=== PATIENT | female | born 1970 | race African-American/Black ===

== ENCOUNTER → 2017-12-17 | Outpatient (CLI) | payer OTHER ==
[~2017-12-17] MED LIST: ACET650T67 PO; ASPI81CH6 CHEW; BIOTCAP PO; BUPR150CR PO; COMMODE 3-IN-11 MIS; CYCL10TA PO; CYCL1PAK PO; ESSE250T PO; FISH1000 PO; HYDR-3288 PO; LORA1TAB PO; LORA1TAB12 PO; MAGN250T13 PO; OMEGCAP PO; PROT40TA PO; TRAM50 PO; ULTR50TA PO; VIIB10TA PO; VIIB20TA PO; VITA-13 PO; VITA1000 PO; VORT10TA PO; WALKER WHEELS/F1 MIS; WELL150T PO; ZOFR4TAB PO; ZOFR4TAB3 PO
== END ==
LOC: CPRE 09:32
PROVIDERS: ATTEND Orthopaedic Surgery Sports Medicine
DX: M16.11 Unilateral primary osteoarthritis, right hip (principal)

== ENCOUNTER 2017-12-31 05:13 | Inpatient (IN) | payer OTHER ==
[~2017-12-31] VITALS: Ht 160 cm; Wt 95.4 kg
[~2017-12-31 05:13] MED LIST changes: -ASPI81CH6 CHEW; -COMMODE 3-IN-11 MIS; -CYCL1PAK PO; -FISH1000 PO; -HYDR-3288 PO; -LORA1TAB PO; -MAGN250T13 PO; -ULTR50TA PO; -VITA-13 PO; -VORT10TA PO; -WALKER WHEELS/F1 MIS; -WELL150T PO; -ZOFR4TAB3 PO
[2017-12-31] MEDS ORDERED: CHLORHEXIDINE GLUCONATE 2 % 1 PACK (2 CLOTHS) TOPICAL PRN ×2 (05:45→06:00)
[2017-12-31] MEDS ORDERED: DEXAMETHASONE SOD PHOS 20 MG/5 ML VIAL IV PUSH ONE (05:45)
[2017-12-31] MEDS ORDERED: SODIUM CHLORID 0.9% 500 ML IV PRN ×2 (05:45→06:00)
[2017-12-31] MEDS ORDERED: POVIDONE IODINE 5% (ANTISEPSIS KIT) 4 APPLICATIONS EACH NARE PRN ×2 (05:45→06:00)
[2017-12-31] MEDS ORDERED: METOPROLOL TARTRATE 25 MG TAB PO PRN ×2 (05:45→06:00)
[2017-12-31] MEDS ORDERED: LACTATED RINGER'S 1000 ML IV PRN ×2 (05:45→06:00)
[2017-12-31] MEDS ORDERED: SODIUM CHLORIDE 0.9% IV SCH (06:00)
[2017-12-31] MEDS ORDERED: CHLORHEXIDINE GLUCONATE 4% SOLN 120 ML BTL TOPICAL SCH (06:00)
[2017-12-31] MEDS ORDERED: TRANEXAMIC ACID IV SCH (06:00)
[2017-12-31] MEDS ORDERED: TRANEXAMIC PERI-ARTICULAR 3,000 MG/NS 100 ML P-ARTICULR SCH ×2 (06:00)
[2017-12-31] MEDS ORDERED: EXPAREL PERI-ARTICULAR INJECTION (TOTAL VOL. 60 ML) P-ARTICULR SCH ×2 (06:00)
[2017-12-31] MEDS ORDERED: POVIDONE IODINE 7.5% SCRUB 118 ML BOTTLE TOPICAL SCH (06:00)
[2017-12-31] MEDS ORDERED: VANCOMYCIN 1 GM/200 ML PREMIX ON-CALL IV SCH (06:00)
[2017-12-31] MEDS ORDERED: ceFAZolin 2 GM PREMIX 50 ML IV SCH (06:00)
[2017-12-31] MEDS ORDERED: GENTAMICIN SULFATE 80 MG/2 ML VIAL ONE (06:29)
[2017-12-31] MEDS ORDERED: HYDR-3288 PO ×2 (06:50→10:21)
[2017-12-31] MEDS ORDERED: ASPI81CH6 CHEW (06:51)
[2017-12-31] MEDS ORDERED: ZOLPIDEM TARTRATE 5 MG TAB PO PRN (07:00)
[2017-12-31] MEDS ORDERED: diphenhydrAMINE HCL 50 MG/ML VIAL IV PUSH PRN (07:00)
[2017-12-31] MEDS ORDERED: ONDANSETRON HCL 4 MG/2 ML VIAL IVP PRN (07:00)
[2017-12-31] MEDS ORDERED: ACETAMINOPHEN 1000 MG/100 ML 100 ML IV ONE (07:51)
[2017-12-31] MEDS ORDERED: DO NOT ADM ANY ANTICOAGULANT DRUGS PRN (08:42)
--- NOTE | 2017-12-31 09:00 | MP ---
cc: Mika Ferreira MD DATE OF OPERATION: 12/31/2017 PREOPERATIVE DIAGNOSIS: Right hip osteoarthritis. POSTOPERATIVE DIAGNOSIS: Right hip osteoarthritis. PROCEDURE PERFORMED: Right total hip arthroplasty. SURGEON: Mika Ferreira MD. ANESTHESIA: General. ESTIMATED BLOOD LOSS: 200 mL. COMPLICATIONS: None. IMPLANTS USED: DePuy Corail size 10 press-fit standard offset femoral stem, size 48 solid Madison Gription cup, size 32 mm +4 high offset posterior high wall highly cross-linked polyethylene liner, size 32 ceramic head, +1 neck. JUSTIFICATION: This patient is a 47-year-old female with a history of severe end-stage osteoarthritis involving the right hip. She has severe disabling pain with standing, walking ambulation and weight-bearing activities. She has severe pain at rest. The pain does interfere with activities of daily living. She has failed greater than 3 months of nonoperative conservative treatment to include medications, therapy, injections, ambulatory assisted, home exercise program, activity modification. The patient had a gastric bypass surgery and has lost 100 pounds. X-rays of the right hip reveal severe end-stage osteoarthritis with [id number] joint space narrowing, subchondral sclerosis, subchondral cyst osteophyte formation with superior subluxation. The patient was counseled as to the risks, benefits and alternatives to a total hip arthroplasty. The risks were discussed, which include, but are not limited to anesthesia, bleeding, infection, damage to nerves and blood vessels, pain, stiffness, fracture, dislocation, leg length discrepancy, blood clots, pulmonary embolism, even . The patient's pain is very severe. She favored the benefits over the risks. She did wish to proceed with surgery. PROCEDURE IN DETAIL: Written consent was obtained. The patient was identified by name, taken to the operating room, and placed supine on the operating room table. General anesthesia was administered, as well as 2 grams of IV Ancef and 1 gram of IV vancomycin. The patient was carefully turned to the left lateral decubitus position. A lateral arm roll was placed. All bony prominences and pressure points were well padded. The right hip and right lower extremity prepped and draped using Isopropyl alcohol, Hibiclens solution and ChloraPrep solution. After a time-out was performed, a longitudinal incision was made over the posterolateral aspect of the right hip. The fascial layer was incised. The piriformis and capsule was incised and tagged with #2 FiberWire suture. The hip was dislocated posteriorly. An oscillating saw was used to perform a femoral neck cut. Attention turned to the acetabulum where a 10 blade scalpel was used to excise the labrum. Sequential reaming began at size 41 and was carried through to a size 48. Subsequently, a solid [place] Gription cup was implanted in approximately 45 degrees of abduction and 10 degrees of anteversion. There was good purchase and fixation after insertion of the cup. A screw hole eliminator was placed, followed by the highly cross-linked, +4 polyethylene liner. The liner was impacted in place and tested for stability. Attention was turned to the femur where a box cutting osteotome was used to gain entrance into the intramedullary canal of the femur. This was followed by canal finder and lateralizing reamer. Sequential broaching up to a size 10 was followed by a calcar planer. Trial head and neck combinations were evaluated and final components implanted in place with the correct components. The leg could achieved full extension and external rotation without evidence of anterior instability or impingement. The hip could be flexed 90 degrees and internally rotated 70 degrees before evidence of posterior instability. Soft tissue tension felt appropriate and clinically leg lengths were felt relatively symmetric. The surgical wound was thoroughly irrigated with sterile saline post lavage post-antibiotic impregnated solution. The piriformis and capsule was repaired primarily with #2 FiberWire suture. Fascial layer was closed with #1 Vicryl suture. Subcutaneous layer closed with 2-0 Vicryl suture. Skin was closed with Dermabond. Sterile dressings were applied. The patient tolerated the procedure well with no intraoperative complications noted. Mika Ferreira MD JWViry/RONNI , 08:36 AM , 08:59 AM
[2017-12-31] MEDS ORDERED: Post-op Orders (for Pharmacy) XX ONE (09:07)
[2017-12-31] MEDS ORDERED: MIDAZOLAM HCL 2 MG/2 ML VIAL ONE (09:15)
[2017-12-31] MEDS ORDERED: *morphine SULFATE 4 MG/ML PERIprocedure ONLY ONE ×2 (09:15→09:27)
[2017-12-31] MEDS ORDERED: MEPERIDINE HCL 25 MG/ML VIAL ONE (09:32)
[2017-12-31] MEDS ORDERED: LORazepam 2 MG/ML VIAL ONE (09:39)
[2017-12-31] MEDS: SODIUM CHLOR 0.9% 1000 ML INJ 1,000 ML IV SCH ×2 (11:00→21:50)
--- NOTE | 2017-12-31 11:03 | RADRPT ---
EXAM DATE/TIME: 12/31/2017 09:25 [facility] COMPARISON: No previous studies available for comparison. INDICATIONS : Post op right hip surgery. MEDICAL HISTORY : None. SURGICAL HISTORY : None. ENCOUNTER: Initial ACUITY: 1 day PAIN SCORE: Non-responsive. LOCATION: Right hip and pelvis FINDINGS: The patient is status post a total hip arthroplasty with a bipolar prosthesis. Prosthesis is well-sea ember. Alignment is anatomic. A fracture is not appreciated. CONCLUSION: Anatomic alignment. Brain Moreno MD FACR Board Certified Radiologist. This report was verified electronically.
[2017-12-31] MEDS: ACETAMINOPHEN/HYDROcodone 325 MG/10 MG TAB PO PRN ×3 (11:08→17:52)
[2017-12-31 11:30] VITALS: BP 133/66; PULSE 90; RESP 18; TEMP 97.9; O2SAT 100
--- NOTE | 2017-12-31 11:48 | PD.CONS ---
HPI Service [facility] Hospitalists Consult Requested By Dr. Ferreira Reason for Consult Postoperative medical management Primary Care Physician Lizbeth Ledesma MD Diagnoses: (1) Primary localized osteoarthrosis, pelvic region and thigh History of Present Illness This is a pleasant 47-year-old female patient with past medical history which includes iron deficiency anemia, chronic low back pain, anxiety depression managed by Dr. San and osteoarthritis of the right hip. Patient is seen postoperative right total hip arthroplasty today 12/31/[address] Ferreira. Patient is drowsy postanesthesia at this time information gathered from patient as well as prior computerized charting. Patient is currently complaining of postoperative pain has received oral pain medication 15 minutes ago. Patient denies nausea vomiting diarrhea constipation fevers chills shortness of breath or chest pain. Review of Systems Respiratory: DENIES: Cough, Sputum production, Shortness of breath Cardiovascular: DENIES: Chest pain, Palpitations, Dyspnea on Exertion Gastrointestinal: DENIES: Abdominal pain, Nausea, Vomiting Musculoskeletal: COMPLAINS OF: Joint pain, Joint Swelling Neurologic: DENIES: Headache, Speech Problems Psychiatric: DENIES: Anxiety, Depression Past Family Social History Past Medical History iron deficiency anemia, chronic low back pain, anxiety depression managed by Dr. San and osteoarthritis of the right hip Past Surgical History section, cholecystectomy, EGD/colonoscopy, sleeve gastrectomy, tubal ligation, endometrial ablation Reported Medications Easley (Hydrocodone-Acetaminophen) 7.5-325 mg Tab 1-2 Tab PO Q6H PRN Aspirin Low Dose (Aspirin) 81 Mg Chew 81 Mg CHEW BID 30 Days Easley (Hydrocodone-Acetaminophen) 7.5-325 mg Tab 1-2 Tab PO Q6H PRN Tylenol Arthritis (Acetaminophen) 650 Mg Tablet.er 1 Tab PO DAILY PRN Ultram (Tramadol HCl) 50 Mg Tab 50 Mg PO Q4H PRN Protonix (Pantoprazole Sodium) 40 Mg Tab 40 Mg PO DAILY Zofran (Ondansetron HCl) 4 Mg Tab 4 Mg PO Q6HR PRN [place]-3 Fish Oil/Vitamin (Fish Oil-Cholecalciferol) 1,000-1,000 Mg Cap 1 Cap PO DAILY Magnesium 250 Mg Tab 1 Tab PO DAILY Lorazepam 1 Mg Tab 1 Mg PO BID PRN Flexeril (Cyclobenzaprine HCl) 10 Mg Tab 10 Mg PO TID Vitamin D-1000 (Cholecalciferol) 1,000 Unit Tab 1,000 Units PO DAILY Wellbutrin SR 12 HR (Bupropion HCl) 150 Mg Tab 150 Mg PO Q12HR Biotin 5 Mg Cap 5 Mg PO DAILY Viibryd (Vilazodone) 20 Mg Tab 30 Mg PO HS Patient takes 10 mg in the AM and 20 mg HS Allergies: Coded Allergies: No Known Allergies (Verified Allergy, Unknown, 12/31/17) Family History Family medical history includes diabetes hypertension and myasthenia gravis Social History Occasional EtOH use 3-4 times per year Lifelong non-smoker Denies drug use Physical Exam Vital Signs Vital Signs Date Time Temp Pulse Resp B/P (MAP) Pulse Ox O2 Delivery O2 Flow Rate FiO2 12/31/17 10:45 97.6 78 15 133/73 (93) 100 Nasal Cannula 3 12/31/17 10:15 85 15 128/69 (88) 100 Nasal Cannula 3 12/31/17 10:00 78 20 133/73 (93) 100 Nasal Cannula 3 12/31/17 09:45 102 28 142/78 (99) 100 Nasal Cannula 3 12/31/17 09:30 109 24 134/73 (93) 100 Nasal Cannula 3 12/31/17 09:15 96 24 119/68 (85) 100 Nasal Cannula 3 12/31/17 09:08 97.8 96 22 125/71 (89) 100 Nasal Cannula 3 12/31/17 06:06 99.0 86 16 137/78 (97) 98 Physical Exam GENERAL: This is a well-nourished, well-developed patient, in no apparent distress. SKIN: Postoperative dressing dry and intact HEAD: Atraumatic. Normocephalic. No temporal or scalp tenderness. EYES: Extraocular motions intact. No scleral icterus. No injection or drainage. CARDIOVASCULAR: Regular rate and rhythm RESPIRATORY: Clear to auscultation. Breath sounds equal bilaterally. GASTROINTESTINAL: Abdomen soft, non-tender, nondistended. Hypoactive bowel sounds throughout MUSCULOSKELETAL: Extremities without clubbing, cyanosis, or edema. No joint tenderness, effusion, or edema noted. No calf tenderness. Negative Homans sign bilaterally. NEUROLOGICAL: Awake and alert. Motor and sensory grossly within normal limits. Five out of 5 muscle strength in all muscle groups, with the exception of postoperative extremity. Normal speech. Imaging Last Impressions Hip and Pelvis X-Ray 12/31/17 0000 Signed Impressions: Service Date/Time: Sunday, December 31, 2017 09:25 - CONCLUSION: Anatomic alignment. Brain Moreno MD Assessment and Plan Problem List: (1) Primary localized osteoarthrosis, pelvic region and thigh ICD Codes: M16.10 - Unilateral primary osteoarthritis, unspecified hip Plan: Patient status post right total hip arthroplasty posterior approach with Dr. Ferreira on 12/31/[address] Ferreira Patient on p.o. and IV pain medication Patient on Lovenox for DVT prophylaxis Physical therapy Supportive care (2) Anxiety and depression ICD Codes: F41.9 - Anxiety disorder, unspecified; F32.9 - Major depressive disorder, single episode, unspecified Plan: Patient follows with Dr. Hyatt outpatient Patient takes Viibryd 10 mg in the AM and 20 mg PO HS, Continue patient's home regimen and she reports she is fairly stable on this regimen Assessment and Plan Patient examined. Assessment and plan formulated with Dafne Toussaint PA-C. I agree with the above. Dafne Toussaint Dec 31, 2017 11:48 Ephraim Conde MD Dec 31, 2017 12:39
[2017-12-31] MEDS ORDERED: GLYCOPYRROLATE 1 MG/5 ML SYRINGE IV PUSH ONE (12:00)
[2017-12-31] MEDS ORDERED: PROPOFOL 200 MG/20 ML AMP IV ONE (12:00)
[2017-12-31] MEDS ORDERED: ROCURONIUM INJ 50 MG/5 ML SYRINGE IV PUSH ONE (12:00)
[2017-12-31] MEDS ORDERED: LACTATED RINGER'S 1000 ML INJ 1,000 ML IV ONE (12:00)
[2017-12-31] MEDS ORDERED: LIDOCAINE HCL 1% PF 5 ML SYRINGE OTHER ONE (12:00)
[2017-12-31] MEDS ORDERED: ONDANSETRON HCL 4 MG/2 ML VIAL IV ONE (12:00)
[2017-12-31] MEDS ORDERED: NEOSTIGMINE 5 MG/5 ML SYRINGE IV PUSH ONE (12:00)
[2017-12-31] MEDS: ceFAZolin 2 GM PREMIX 50 ML IV SCH ×2 (12:51→17:52)
[2017-12-31] MEDS: MORPHINE SULFATE 4 MG/ML INJ IV PUSH PRN ×2 (12:52→21:39)
[2017-12-31] MEDS ORDERED: BENZOCAINE 6 MG/MENTHOL 10 MG LOZENGE BUCCAL ONE (13:30)
[2017-12-31] MEDS: BENZOCAINE 6 MG/MENTHOL 10 MG LOZENGE BUCCAL PRN (15:48)
[2017-12-31 16:00] VITALS: BP 141/70; PULSE 91; RESP 18; TEMP 97.8; O2SAT 100
[2017-12-31 17:11] VITALS: O2SAT 97
[2017-12-31 20:16] VITALS: BP 140/73; PULSE 106; RESP 17; TEMP 98.5; O2SAT 100
[2017-12-31] MEDS ORDERED: VILAZODONE 20 MG PO SCH (21:00)
[2017-12-31] MEDS: buPROPion HCL 150 MG SUSTAINED RELEASE TAB PO SCH (21:39)
[2017-12-31] MEDS: LORazepam 1 MG TAB PO PRN (21:39)
[2018-01-01] VITALS (8 sets, daily range): BP systolic 111–131; BP diastolic 57–69; PULSE 102–111; RESP 16–18; TEMP 98.4–100.7; O2SAT 97–100
[2018-01-01] MEDS: ACETAMINOPHEN/HYDROcodone 325 MG/10 MG TAB PO PRN ×4 (00:52→20:24)
[2018-01-01] MEDS: ceFAZolin 2 GM PREMIX 50 ML IV SCH (00:52)
[2018-01-01] MEDS: BENZOCAINE 6 MG/MENTHOL 10 MG LOZENGE BUCCAL PRN (01:01)
[2018-01-01] MEDS: SODIUM CHLOR 0.9% 1000 ML INJ 1,000 ML IV SCH ×3 (04:28→20:31)
[2018-01-01] MEDS: MORPHINE SULFATE 4 MG/ML INJ IV PUSH PRN ×3 (04:38→17:19)
[2018-01-01 06:14] LABS: HEMATOCRIT 28.7 % (35.0-46.0); HEMOGLOBIN 9.7 GM/DL (11.6-15.3); MEAN CORPUSCULAR HEMOGLOBIN 33.1 PG (27.0-34.0); MEAN CORPUSCULAR HGB CONC 33.7 % (32.0-36.0); MEAN PLATELET VOLUME 7.8 FL (7.0-11.0); PLATELET COUNT 322 TH/MM3 (150-450); RED BLOOD COUNT 2.92 MIL/MM3 (4.00-5.30); RED CELL DISTRIBUTION WIDTH 12.7 % (11.6-17.2); WHITE BLOOD COUNT 11.5 TH/MM3 (4.0-11.0)
[2018-01-01 06:41] LABS: BICARBONATE 23.5 MEQ/L (21.0-32.0); CALCIUM 8.4 MG/DL (8.5-10.1); CREATININE 0.9 MG/DL (0.50-1.00)
[2018-01-01] MEDS: buPROPion HCL 150 MG SUSTAINED RELEASE TAB PO SCH ×2 (07:57→20:24)
[2018-01-01] MEDS: PANTOPRAZOLE SOD 40 MG DELAYED RELEASE TAB PO SCH (07:57)
[2018-01-01] MEDS: LORazepam 1 MG TAB PO PRN ×2 (07:57→20:23)
[2018-01-01] MEDS: ENOXAPARIN SODIUM 40 MG/0.4 ML SYRINGE SQ SCH (07:58)
--- NOTE | 2018-01-01 08:02 | PD.ORT.PN ---
Subjective Post Op Day #: 1 Subjective Remarks very painful Objective Vitals Vital Signs Date Time Temp Pulse Resp B/P (MAP) Pulse Ox O2 Delivery O2 Flow Rate FiO2 01/01/18 04:46 99.1 103 16 111/58 (75) 97 01/01/18 00:30 98.9 102 18 123/57 (79) 98 12/31/17 20:16 98.5 106 17 140/73 (95) 100 12/31/17 17:11 97 21 12/31/17 16:00 97.8 91 18 141/70 (93) 100 12/31/17 12:57 18 12/31/17 12:08 18 12/31/17 12:08 18 12/31/17 11:30 97.9 90 18 133/66 (88) 100 12/31/17 10:45 97.6 78 15 133/73 (93) 100 Nasal Cannula 3 12/31/17 10:15 85 15 128/69 (88) 100 Nasal Cannula 3 12/31/17 10:00 78 20 133/73 (93) 100 Nasal Cannula 3 12/31/17 09:45 102 28 142/78 (99) 100 Nasal Cannula 3 12/31/17 09:30 109 24 134/73 (93) 100 Nasal Cannula 3 12/31/17 09:15 96 24 119/68 (85) 100 Nasal Cannula 3 12/31/17 09:08 97.8 96 22 125/71 (89) 100 Nasal Cannula 3 I/O 12/31/17 12/31/17 12/31/17 01/01/18 01/01/18 01/01/18 07:00 15:00 23:00 07:00 15:00 23:00 Intake Total 1500 ml 720 ml 50 ml 360 ml Output Total 200 ml Balance 1300 ml 720 ml 50 ml 360 ml Intake Oral 720 ml 360 ml IV Total 50 ml Other 1500 ml Output Estimated Blood Loss 200 ml # Voids 3 2 # Bowel Movements 0 Result Diagram: 01/01/18 0504 01/01/18 0504 Objective Remarks in bed, nad dressing c/d/i thigh soft neg homans nvi Assessment & Plan Ortho Post Op Day #: 1 Problem List: Assessment and Plan s/p R CISCO posterior approach wbat ok to maintain dressing unless saturated lovenox, d/c on asa81 d/c planning home with [facility] and pt - likely Wed pain control f/up dr. trevizo 2 weeks Mika James Jan 01, 2018 08:02
--- NOTE | 2018-01-01 08:04 | HHI.DCPOC ---
Discharge Care Plan Diagnosis: (1) Primary localized osteoarthrosis, pelvic region and thigh Your Health Problems Are: Difficulty with ADL Goals to Promote Your Health * To prevent worsening of your condition and complications * To maintain your health at the optimal level Directions to Meet Your Goals Take your medications as prescribed Follow your dietary instruction Follow activity as directed Keep your appointments as scheduled Take your immunizations and boosters as scheduled If your symptoms worsen call your PCP, if no PCP go to Urgent Care Center or Emergency Room Smoking is Dangerous to Your Health. Avoid second hand smoke Call the 24-hour hour crisis hotline for domestic abuse at Mika James Jan 01, 2018 08:04
--- NOTE | 2018-01-01 08:05 | HHI.FF ---
Face to Face Verification Diagnosis: (1) Primary localized osteoarthrosis, pelvic region and thigh Physical Therapy Gait training, Safety evaluation, Transfer training, bed to chair Hip: Total hip, Protocol: Right Right LE Weight Bearing: WB as tolerated Nursing RN: 3 days/week x 2 weeks Nursing: Dressing changes Dressing Changes: Daily dressing change I have seen patient Dafne Mejia on 01/01/18. My clinical findings support the need for the requested home health care services because: Limited ability to care for self High risk of falls I certify that my clinical findings support that this patient is homebound because: Post-op weakness Unsteady gait/balance Mika James Jan 01, 2018 08:05
[2018-01-01] MEDS ORDERED: WALKER WHEELS/F1 MIS (08:06)
[2018-01-01] MEDS ORDERED: COMMODE 3-IN-11 MIS (08:06)
[2018-01-01] MEDS ORDERED: VIIBRYD 10 MG PO SCH (09:00)
[2018-01-01] MEDS: MULTIVITAMINS/MINERALS THERAPEUTIC TAB PO SCH (20:23)
[2018-01-01] MEDS: DOCUSATE SODIUM 100 MG CAP PO SCH (20:23)
[2018-01-02 00:29] VITALS: BP 102/54; PULSE 107; RESP 18; TEMP 98.8; O2SAT 94
[2018-01-02 03:05] VITALS: BP 124/61; PULSE 104; RESP 18; TEMP 97.7; O2SAT 96
[2018-01-02] MEDS: ACETAMINOPHEN/HYDROcodone 325 MG/10 MG TAB PO PRN ×4 (03:19→12:13)
[2018-01-02] MEDS ORDERED: BISACODYL 10 MG SUPP RECTAL PRN (06:30)
[2018-01-02] MEDS ORDERED: SENNOSIDES 8.6 MG TAB PO PRN (06:30)
[2018-01-02] MEDS ORDERED: LACTULOSE SYRUP 20 GM/30 ML CUP PO PRN (06:30)
[2018-01-02 07:36] VITALS: BP 113/58; PULSE 105; RESP 18; TEMP 98.4; O2SAT 99
[2018-01-02] MEDS: MULTIVITAMINS/MINERALS THERAPEUTIC TAB PO SCH (08:02)
[2018-01-02] MEDS: buPROPion HCL 150 MG SUSTAINED RELEASE TAB PO SCH (08:02)
[2018-01-02] MEDS: PANTOPRAZOLE SOD 40 MG DELAYED RELEASE TAB PO SCH (08:02)
[2018-01-02] MEDS: ENOXAPARIN SODIUM 40 MG/0.4 ML SYRINGE SQ SCH (08:03)
[2018-01-02] MEDS: DOCUSATE SODIUM 100 MG CAP PO SCH (08:03)
--- NOTE | 2018-01-02 08:09 | PD.ORT.PN ---
Subjective Post Op Day #: 2 Subjective Remarks still painful. thinks she may need to go to snf. Objective Vitals Vital Signs Date Time Temp Pulse Resp B/P (MAP) Pulse Ox O2 Delivery O2 Flow Rate FiO2 01/02/18 07:36 98.4 105 18 113/58 (76) 99 01/02/18 03:05 97.7 104 18 124/61 (82) 96 01/02/18 00:29 98.8 107 18 102/54 (70) 94 01/01/18 20:00 100.7 111 18 118/65 (82) 100 01/01/18 18:02 98 21 01/01/18 17:24 18 01/01/18 16:00 99.9 106 18 131/69 (89) 98 01/01/18 15:15 18 01/01/18 12:00 98.6 102 17 119/60 (79) 99 01/01/18 11:44 100 I/O 01/01/18 01/01/18 01/01/18 01/02/18 01/02/18 01/02/18 07:00 15:00 23:00 07:00 15:00 23:00 Intake Total 50 ml 360 ml 480 ml 360 ml Balance 50 ml 360 ml 480 ml 360 ml Intake Oral 360 ml 480 ml 360 ml IV Total 50 ml # Voids 2 3 2 # Bowel Movements 0 0 0 Result Diagram: 01/01/18 0504 01/01/18 0504 Objective Remarks in bed, nad dressing c/d/i thigh soft tenderness in the calf RLE nvi Assessment & Plan Ortho Post Op Day #: 2 Problem List: Assessment and Plan s/p R CISCO posterior approach wbat ok to maintain dressing unless saturated lovenox, d/c on asa81 d/c planning to snf - awaiting auth from insurance [facility] RLE pain control f/up dr. trevizo 2 weeks Mika James Jan 02, 2018 08:09
[2018-01-02] MEDS ORDERED: LORazepam 1 MG TAB PO PRN (08:15)
[2018-01-02 08:46] LABS: HEMATOCRIT 28.5 % (35.0-46.0); HEMOGLOBIN 9.5 GM/DL (11.6-15.3); MEAN CELL VOLUME 98.5 FL (80.0-100.0); MEAN CORPUSCULAR HGB CONC 33.4 % (32.0-36.0); MEAN PLATELET VOLUME 7.8 FL (7.0-11.0); PLATELET COUNT 304 TH/MM3 (150-450); RED BLOOD COUNT 2.89 MIL/MM3 (4.00-5.30); RED CELL DISTRIBUTION WIDTH 12.9 % (11.6-17.2); WHITE BLOOD COUNT 12.3 TH/MM3 (4.0-11.0)
[2018-01-02] MEDS ORDERED: MAGNESIUM HYDROXIDE SUSP 30 ML CUP PO SCH (09:00)
[2018-01-02 09:01] LABS: BICARBONATE 26.8 MEQ/L (21.0-32.0); CALCIUM 8.5 MG/DL (8.5-10.1); CREATININE 0.72 MG/DL (0.50-1.00)
[2018-01-02 09:11] VITALS: RESP 20
--- NOTE | 2018-01-02 10:06 | RADRPT ---
EXAM DATE/TIME: 01/02/2018 08:29 [facility] COMPARISON: No previous studies available for comparison. INDICATIONS : Right lower leg pain. Post right total hip arthroplasty MEDICAL HISTORY : Gastroesophageal reflux disease. Arthritis. Anemia. Depression. Anxiety. SURGICAL HISTORY : section. Cholecystectomy. Tubal ligation. Bariatric sleeve. Endometrial ablation. ENCOUNTER: Initial ACUITY: 1 day PAIN SCORE: 8/10 LOCATION: Right leg. TECHNIQUE: Venous ultrasound of the leg was performed from the inguinal ligament to the proximal calf. Real-abdiel e, color Doppler and spectral tracing, compression and augmentation techniques were used. FINDINGS: There is normal compressibility of the deep venous system from the inguinal region to the proximal ca lf. No echogenic clot is seen in the lumen of the common femoral, femoral, popliteal, and posterior tibial veins. There is a normal response of the venous system to proximal and distal augmentation an d respiration. CONCLUSION: Negative for deep venous thrombosis Brain Moreno MD FACR on January 02, 2018 at 10:04 Board Certified Radiologist. This report was verified electronically.
== END 2018-01-02 12:54 | DRG 470 ==
LOC: HSDI 05:13 → N06B 10:56
PROVIDERS: ADMIT Orthopaedic Surgery Sports Medicine; ATTEND Orthopaedic Surgery Sports Medicine
PROC: 0SR904A Replacement of Right Hip Joint with Ceramic on Polyethylene Synthetic Substitute, Uncemented, Open Approach (ICD-10-PCS; principal; 2017-12-31 06:46)
DX: M16.11 Unilateral primary osteoarthritis, right hip (principal); F32.9 Major depressive disorder, single episode, unspecified; F41.9 Anxiety disorder, unspecified; M54.5 Low back pain; G89.29 Other chronic pain; Z98.84 Bariatric surgery status
CPT/HCPCS: 73502; 80048; 85027; 86850; 86900; 86901; 93971; 94150; C1776; C9290; J0131; J0690; J1100; J1580; J1650; J2060; J2175; J2250; J2270; J2405; J2710; J3010; J3370; J7120; L1830